=== PATIENT | female | born 1965 | race Caucasian/White ===

== ENCOUNTER 2017-07-17 14:00 | Outpatient (CLI) | payer BC, OTHER | END 2017-07-17 14:01 | disposition home or self-care (01) | LOC: BICRAD 14:00 | PROVIDERS: ATTEND Nurse Practitioner Family | DX: M25.561 Pain in right knee (principal) ==

== ENCOUNTER 2017-09-30 07:40 | Outpatient (CLI) | payer BC ==
--- NOTE | 2017-09-30 11:06 | MRI ---
MRI OF THE RIGHT KNEE WITHOUT CONTRAST: Date: 09/30/17 INDICATION: Right knee pain for many years with history of the patient being a runner. COMPARISON: None. TECHNIQUE: Multiplanar, multisequence MR images were obtained of the right knee without contrast. FINDINGS: The MCL, ACL, PCL, LCLC, and extensor mechanism is intact. There is some mild intrinsic increased T2 signal involving the proximal patellar tendon along its medial aspect, best seen on image 16 of serie s 3, and image 10 of series 5, consistent with patellar tendinosis. The quadriceps mechanism appears within normal limits. There is a partial thickness low grade articular surface fissure involving the median patellar ridge measuring 1.0 mm. There is mild articular cartilage fibrillation involving the medial patellar facet on image 8 of series 3. There is focal full thickness articular cartilage defect involving the medial tibial plateau measurin g 4.0 x 7.0 mm on image 18 of series 6 and image 21 of series 5 with associated subchondral cyst form ation and subchondral edema. There is a 2.3 mm articular cartilage fissure that is full thickness inv olving the medial femoral condyle on image 16 of series 6 and image 21 of series 5. There is also an area of focal full thickness articular cartilage thinning involving the medial femor al trochlea measuring 5.0 mm on image 15 of series 5. There is also full thickness articular cartilag e thinning involving the medial femoral trochlea There is some intrinsic degenerative signal involving the medial meniscus with partial medial extrusi on. The lateral meniscus is intact. IMPRESSION: 1. 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 2. Partial thickness low grade articular surface fissure involving the median patellar ridge with mi ld articular cartilage fibrillation involving the medial patellar facet. 3. Intrinsic degenerative signal involving the medial meniscus without evidence of discrete tear. 4. Mild proximal patellar tendinosis. POS: [facility]
== END 2017-09-30 07:41 | disposition home or self-care (01) ==
LOC: TBSIIMAG 07:40
PROVIDERS: ATTEND Specialist
DX: M76.51 Patellar tendinitis, right knee (principal); M25.561 Pain in right knee

== ENCOUNTER 2022-04-09 13:48 | Outpatient (CLI) | payer BC | END 2022-04-09 13:49 | disposition home or self-care (01) | LOC: BICRAD 13:48 | PROVIDERS: ATTEND Specialist | DX: M25.572 Pain in left ankle and joints of left foot (principal); M79.672 Pain in left foot ==